=== PATIENT | male | born 1980 | race Caucasian/White ===

== ENCOUNTER 2018-10-24 16:21 | Emergency (ER) | payer BC ==
[2018-10-24 17:18] LABS: Urine Appearance Cloudy; Urine Bilirubin Negative (Negative); Urine Blood Negative (Negative); Urine Color Yellow; Urine Glucose Negative (Negative); Urine Ketones Negative (Negative); Urine Nitrite Negative (Negative); Urine Protein Negative (Negative); Urine Specific Gravity 1.023 (1.010-1.030); Urine Urobilinogen Positive (Negative)
--- NOTE | 2018-10-24 17:45 | ED ---
Back Pain - HPI Summary HPI Summary: This patient is a 38 year old M presenting to [facility] with a chief complaint of left flank pain since 1 week ago. The patient reports that the pain worsened today. The patient notes that the pain feels like a bruise but he denies any mechanism of injury. Symptoms aggravated by picking up his children. Symptoms alleviated by nothing. Patient has previously had a kidney stone many years ago. Patient has hx of ruptured disc but notes that this pain feels different to him. - History of Current Complaint Chief Complaint: EDFlankPain Stated Complaint: LEFT KIDNEY PAIN PER PT Time Seen by Provider: 10/24/18 17:11 Hx Obtained From: Patient Onset/Duration: Lasting Weeks - 1 week, Still Present, Worse Since - 1 day ago Onset/Duration: Started Weeks Ago, Atraumatic, Still Present Timing: Constant Back Pain Location: Is Discrete @ - left flank Severity Initially: Mild Severity Currently: Mild Pain Intensity: 0 Aggravating Symptom(s): Lifting Alleviating Symptom(s): Nothing Associated Signs And Symptoms: Positive: Flank Pain - left - Allergies/Home Medications Allergies/Adverse Reactions: Allergies Allergy/AdvReac Type Severity Reaction Status Date / Time No Known Drug Allergies Allergy See Comment Verified 10/24/18 16:35 Home Medications: Home Medications Acetaminophen [Mapap] 500 mg PO Q4HR PRN 10/24/18 [History Confirmed 10/24/18] PMH/Surg Hx/FS Hx/Imm Hx GI History: Reports: Other GI Disorders - current evaluation for elevated LFTs, and fatty liver Musculoskeletal History: Reports: Hx Back Problems - ruptured disc Opthamlomology History: Denies: Hx Legally Blind EENT History: Denies: Hx Deafness Infectious Disease History: No Infectious Disease History: Denies: Traveled Outside the [place] in Last 30 Days - Family History Known Family History: Negative: Blood Disorder - Social History Alcohol Use: Occasionally Hx Substance Use: Yes Substance Use Type: Reports: None Hx Tobacco Use: Yes Smoking Status (MU): Never Smoked Tobacco Review of Systems Negative: Fever Negative: Epistaxis Negative: Cough Negative: Vomiting Positive: flank pain - left All Other Systems Reviewed And Are Negative: Yes Physical Exam - Summary Physical Exam Summary: Appearance: The patient is well-nourished in no acute distress and in no acute pain. Skin: The skin is warm and dry and skin color reflects adequate perfusion. HEENT: The head is normocephalic and atraumatic. The pupils are equal and reactive. The conjunctivae are clear and without drainage. Nares are patent and without drainage. Mouth reveals moist mucous membranes and the throat is without erythema and exudate. The external ears are intact. The ear canals are patent and without drainage. The tympanic membranes are intact. Neck: The neck is supple with full range of motion and non-tender. There are no carotid bruits. There is no neck vein distension. Respiratory: Chest is non-tender. Lungs are clear to auscultation and breath sounds are symmetrical and equal. Cardiovascular: Heart is regular rate and rhythm. There is no murmur or rub auscultated. There is no peripheral edema and pulses are symmetrical and equal. Abdomen: The abdomen is soft and non-tender. There are normal bowel sounds heard in all four quadrants and there is no organomegaly palpated. Musculoskeletal: There is no back tenderness noted. Extremities are non-tender with full range of motion. There is good capillary refill. There is no peripheral edema or calf tenderness elicited. Neurological: Patient is alert and oriented to person, place and time. The patient has symmetrical motor strength in all four extremities. Cranial nerves are grossly intact. Deep tendon reflexes are symmetrical and equal in all four extremities. Psychiatric: The patient has an appropriate affect and does not exhibit any anxiety or depression. Triage Information Reviewed: Yes Vital Signs On Initial Exam: Initial Vitals Temp Pulse Resp BP Pulse Ox 98.3 F 70 16 137/82 97 10/24/18 16:31 10/24/18 16:31 10/24/18 16:31 10/24/18 16:31 10/24/18 16:31 Vital Signs Reviewed: Yes Diagnostics - Vital Signs Vital Signs Temp Pulse Resp BP Pulse Ox 10/24/18 16:31 98.3 F 70 16 137/82 97 - Laboratory Lab Results: Lab Results 10/24/18 Range/Units 17:00 Urine Color Yellow Urine Appearance Cloudy Urine pH 6.0 (5-9) Ur Specific Brandon 1.023 (1.010-1.030) Urine Protein Negative (Negative) Urine Ketones Negative (Negative) Urine Blood Negative (Negative) Urine Nitrate Negative (Negative) Urine Bilirubin Negative (Negative) Urine Urobilinogen Positive A (Negative) Ur Leukocyte Esterase Negative (Negative) Urine Glucose Negative (Negative) Lab Statement: Any lab studies that have been ordered have been reviewed, and results considered in the medical decision making process. - CT CT abd/pelvis CT Interpretation Completed By: ED Physician - Dr. Paige, pending official report Summary of CT Findings: No acute process Back Pain Course/Dx - Course Course Of Treatment: Mr. Ram presented with a left low back pain that started today. It's exacerbated by lifting his children. I could not reproduce the symptoms. Therefore UA and a CT were obtained and there is no sign of a kidney stone. I think this is a musculoskeletal pain and recommended symptomatic treatment and follow-up. - Diagnoses Provider Diagnoses: Lower back pain Discharge - Sign-Out/Discharge Documenting (check all that apply): Patient Departure - discharge home Patient Received Moderate/Deep Sedation with Procedure: No - Discharge Plan Condition: Stable Disposition: HOME Patient Education Materials: Back Pain (ED) Forms: *Work Release Referrals: Leilani BLANCHARD,Watson Lam [Primary Care Provider] - 1 Day Additional Instructions: Follow up with your primary care physician in 1-2 days. Return to the emergency with any new or worsening symptoms. - Billing Disposition and Condition Condition: STABLE Disposition: Home - Attestation Statements Document Initiated by Scribe: Yes Documenting Scribe: Gisel Adam Provider For Whom Gabriele is Documenting (Include Credential): Dorian Paige MD Scribe Attestation: Gisel Back, scribed for Dorian Paige MD on 10/24/18 at 1917. Scribe Documentation Reviewed: Yes Provider Attestation: The documentation as recorded by the diogoibGisel da silva accurately reflects the service I personally performed and the decisions made by me, Dorian Paige MD Status of Scribe Document: Viewed
[2018-10-24 19:07] VITALS: BP 0/0
== END 2018-10-24 19:06 | disposition home or self-care (01) ==
LOC: ED 16:21
DX: M54.5 Low back pain (principal); R93.89 Abnormal findings on diagnostic imaging of other specified body structures; N28.1 Cyst of kidney, acquired
CPT/HCPCS: 74176; 81003; 99283

== ENCOUNTER 2019-07-18 20:43 | Emergency (ER) | payer BC ==
[2019-07-18 20:54] VITALS: BP 127/97
[2019-07-18] MEDS ORDERED: Ibuprofen TAB* 600 MG PO ONE (20:56)
--- NOTE | 2019-07-18 21:05 | UC ---
FLU HPI - HPI Summary HPI Summary: Patient presents to urgent care for evaluation of head congestion, body aches, sore throat progressive for the last 2-3 days. Patient wants to be checked for flu. Patient denies nausea or vomiting. Patient does have fevers for which he has not taken any medications recently. Patient says he did take some symptomatic treatments yesterday. Patient with a slight cough nonproductive. No shortness of breath. No abdominal pain. Decreased appetite but no nausea, vomiting, or diarrhea. Patient without any rashes. Patient's medications is entered in the EMR reviewed this visit. - History of Current Complaint Chief Complaint: UCGeneralIllness Stated Complaint: FEVER, JOINTS ACHE Time Seen by Provider: 07/18/19 20:44 Hx Obtained From: Patient Severity Currently: Mild Severity Initially: Mild Pain Intensity: 4 Pain Scale Used: 0-10 Numeric - Allergy/Home Medications Allergies/Adverse Reactions: Allergies Allergy/AdvReac Type Severity Reaction Status Date / Time No Known Drug Allergies Allergy See Comment Verified 10/24/18 16:35 Home Medications: Home Medications NK [No Home Medications Reported] 07/18/19 [History Confirmed 07/18/19] PMH/Surg Hx/FS Hx/Imm Hx Previously Healthy: Yes - Surgical History Surgical History: None - Family History Known Family History: Positive: Non-Contributory Negative: Blood Disorder - Social History Occupation: Employed Full-time Alcohol Use: Occasionally Substance Use Type: None Smoking Status (MU): Never Smoked Tobacco Review of Systems All Other Systems Reviewed And Are Negative: Yes Constitutional: Positive: Fever, Fatigue ENT: Positive: Sore Throat, Nasal Discharge, Sinus Congestion, Sinus Pain/ Tenderness Cardiovascular: Positive: Negative Gastrointestinal: Positive: Negative Genitourinary: Positive: Negative Physical Exam - Summary Physical Exam Summary: Vital Signs Reviewed: Yes A+Ox3, no distress Eyes: Conjunctiva Clear, GABRIEL. EOM intact and full ENT: Hearing grossly normal TM x 2 clear, turbinates inflammed and boggy, + erythema, + PND, mmoist, uvula midline, no exudate, no erythema Neck: Positive: Supple Respiratory: Positive: No respiratory distress, No accessory muscle use + CTA throughout no w/r Cardiovascular: RRR nl s1, s2 no m/r CBT <2 sec abd soft + BS nt/nd no guarding, no distension Musculoskeletal Exam: TABOR x 4 without difficulty Strength Intact, ROM Intact Neurological: Positive: Alert, + sensation throughout Psychological: Positive: Normal Response To toddler lead teacher Skin: Positive: no rash, no ecchymosis Triage Information Reviewed: Yes Vital Signs: Initial Vital Signs Temp 102.7 F 07/18/19 20:50 Pulse 111 07/18/19 20:50 Resp 16 07/18/19 20:50 BP 127/97 07/18/19 20:50 Pulse Ox 99 07/18/19 20:50 Flu Course/Dx - Course Course Of Treatment: Patient presents to urgent care with several days progressive head congestion, postnasal drip sore throat. Patient with fevers. No antipyretics today. Patient without any shortness of breath. No rash. On exam patient is to have a fever. Patient nontoxic appearing. Patient does have scant fluid in his ears to rates inflamed postnasal drip. Rapid flu and rapid strep are both negative. Discussed with patient at length. Recommend Motrin and Tylenol. Hydrate. Secretion precaution. Respiratory return precaution. Over-the- counter treatments. Patient complaining on agreement with plan. - Differential Dx/Diagnosis Provider Diagnosis: Upper respiratory infection Discharge ED - Sign-Out/Discharge Documenting (check all that apply): Patient Departure All imaging exams completed and their final reports reviewed: No Studies - Discharge Plan Condition: Stable Disposition: HOME Patient Education Materials: Viral Syndrome (ED) Forms: *Gen. Provider Communication, *Work Release Referrals: Leilani BLANCHARD,Watson Lam [Primary Care Provider] - Additional Instructions: - Okay to alternate ibuprofen (Advil, Motrin) 600mg and acetaminophen (Tylenol) 1000mg every 3 hours for pain. Take with food. Do NOT take for more than 4-5 days - Okay to gargle and spit warm salt water every 4 hours as needed for pain - Stay well hydrated - frequent sips of cold fluids will be soothing to your throat (popsicles, jello, ice cream, ice water). Avoid excess caffeine until your symptoms have resolved. -Throat infections are spread by oral secretions - do not share eating or drinking utensils until you symptoms are resolved. Clean items that may get your secretions such as cell phones, ipads, computer mouse, television remotes. Once you start to feel better, change your toothbrush and your pillowcase. - humidify the air in the room where you sleep - boil water, run a hot steam shower, vaporizer, cups of water by heat register - Okay to take over the counter cough and decongestant medication - Contact your doctor to arrange a follow-up appointment as needed - Billing Disposition and Condition Condition: STABLE Disposition: Home
[2019-07-18 21:12] LABS: Influenza A Molecular NEGATIVE (Negative); Influenza B Molecular NEGATIVE (Negative)
== END 2019-07-18 21:54 | disposition home or self-care (01) ==
LOC: UCEAST 20:43
DX: J06.9 Acute upper respiratory infection, unspecified (principal); R50.9 Fever, unspecified
CPT/HCPCS: 87651; 99212; A9270-GY; G0463